=== PATIENT | female | born 1965 | race Hispanic/Latino ===

== ENCOUNTER 2020-04-14 07:35 | Outpatient (CLI) | payer BC ==
--- NOTE | 2020-04-14 09:10 | CT ---
CT ABDOMEN AND PELVIS WITH ORAL AND IV CONTRAST: HISTORY: Left lower quadrant pain. The patient has had a benign tumor removed in 2013, hysterectomy, and appe ndectomy. COMPARISON: 08/21/2013. FINDINGS: The lung bases are clear. The liver, spleen, pancreas, adrenal glands and left kidney are normal. T here is a tiny cyst in the right kidney. No free air, free fluid, or lymphadenopathy is seen in the abdomen or pelvis. The previously noted c ystic mass has been removed in the interim. There are changes of appendectomy and hysterectomy. The small bowel loops are not abnormally dilated. There is colonic diverticulosis without diverticul itis. There are vascular calcifications without evidence of aneurysmal dilatation of the abdominal a danyell. There are degenerative changes in the spine. A fat-containing midline lower anterior abdomina l wall hernia is seen predominantly containing fat and a loop of nonobstructing small bowel. The nec k of the hernial sac measures 5.8 cm in transverse dimension. IMPRESSION: 1. Colonic diverticulosis without diverticulitis. 2. A ventral hernia containing fat and non-obstructed loop of small bowel. POS: OFF
[2020-04-14] MEDS ORDERED: Iopamidol 370 76% 100 ML VIAL ONE (10:27)
== END 2020-04-14 07:36 | disposition home or self-care (01) ==
LOC: BICCT 07:35
PROVIDERS: ATTEND Internal Medicine Gastroenterology
DX: R10.32 Left lower quadrant pain (principal); K30 Functional dyspepsia; R14.0 Abdominal distension (gaseous); R19.4 Change in bowel habit; R63.5 Abnormal weight gain; K57.30 Diverticulosis of large intestine without perforation or abscess without bleeding; K43.9 Ventral hernia without obstruction or gangrene
CPT/HCPCS: 74177; Q9967